=== PATIENT | female | born 1975 | race African-American/Black ===

== ENCOUNTER 2017-04-05 08:46 | Emergency (ER) | payer MEDICAID, OTHER ==
[~2017-04-05] VITALS: Ht 160 cm; Wt 74.0 kg
[2017-04-05 10:06] LABS: HEMATOCRIT. 26.4 % (36.0-48.0); HEMOGLOBIN. 7.9 g/dL (12.0-16.0); MEAN CORPUSCULAR HEMOGLOBIN 18.3 pg (28.0-32.0); MEAN CORPUSCULAR VOLUME 60.7 fL (81.0-99.0); MEAN PLATELET VOLUME 8.6 fl (7.4-10.4); PLATELET 662 x1000/uL (130-400); RED BLOOD CELL COUNT 4.34 mill/uL (4.2-5.4); RED CELL DISTRIBUTION WIDTH 22.3 % (11.6-14.6)
[2017-04-05 10:14] LABS: CHLORIDE 109 mEq/L (98-107)
[2017-04-05 10:32] LABS: PLATELET ESTIMATE INCREASED
[2017-04-05 11:45] VITALS: BP 135/82
== END 2017-04-05 11:50 | disposition home or self-care (01) ==
LOC: ER 09:01
DX: M54.2 Cervicalgia (principal); D50.9 Iron deficiency anemia, unspecified; E83.51 Hypocalcemia; D47.3 Essential (hemorrhagic) thrombocythemia; M32.9 Systemic lupus erythematosus, unspecified; G40.909 Epilepsy, unspecified, not intractable, without status epilepticus; Z86.011 Personal history of benign neoplasm of the brain; Z88.8 Allergy status to other drugs, medicaments and biological substances
CPT/HCPCS: 36415; 80048; 85025; 99284; Z7610

== ENCOUNTER 2019-06-07 20:13 | Emergency (ER) | payer OTHER ==
[~2019-06-07] VITALS: Ht 165.1 cm; Wt 73.0 kg
[2019-06-07 21:50] LABS: CHLORIDE 110 mEq/L (98-107); HEMATOCRIT. 25.2 % (36.0-48.0); HEMOGLOBIN. 7.8 g/dL (12.0-16.0); MEAN CORPUSCULAR HEMOGLOBIN 19.1 pg (28.0-32.0); MEAN CORPUSCULAR VOLUME 61.9 fL (81.0-99.0); MEAN PLATELET VOLUME 8.8 fl (7.4-10.4); PLATELET 475 x1000/uL (130-400); RED BLOOD CELL COUNT 4.07 mill/uL (4.2-5.4); RED CELL DISTRIBUTION WIDTH 22.9 % (11.6-14.6)
[2019-06-07 21:54] LABS: HCG SCREEN NEGATIVE
[2019-06-07 21:55] LABS: PARTIAL THROMBOPLASTIN TIME 25.6 sec (23.4-31.0); PROTHROMBIN TIME 10.4 sec (9.6-11.0)
[2019-06-07 22:21] LABS: PLATELET ESTIMATE INCREASED
[2019-06-08 01:17] VITALS: BP 131/86
== END 2019-06-08 01:30 | disposition short-term general hospital (02) ==
LOC: ER 20:13
DX: R55 Syncope and collapse (principal); D64.9 Anemia, unspecified; M32.9 Systemic lupus erythematosus, unspecified; G40.909 Epilepsy, unspecified, not intractable, without status epilepticus; Z86.011 Personal history of benign neoplasm of the brain; Z98.890 Other specified postprocedural states; Z88.8 Allergy status to other drugs, medicaments and biological substances
CPT/HCPCS: 36415; 71045; 80053; 81025; 83880; 84484; 84703; 85025; 86850; 86900; 93005; 99285

== ENCOUNTER 2020-02-26 09:56 | Emergency (ER) | payer OTHER ==
[~2020-02-26] VITALS: Ht 160 cm; Wt 76.0 kg
[2020-02-26] MEDS ORDERED: KETOROLAC 30MG/ML VIAL IM ONE (10:30)
[2020-02-26 12:54] VITALS: BP 130/86
== END 2020-02-26 13:05 | disposition home or self-care (01) ==
LOC: ER 09:56
DX: M25.511 Pain in right shoulder (principal); M77.8 Other enthesopathies, not elsewhere classified; M32.9 Systemic lupus erythematosus, unspecified; Z98.890 Other specified postprocedural states; Z88.8 Allergy status to other drugs, medicaments and biological substances
CPT/HCPCS: 73030; 81025; 96372; 99283; J1885

== ENCOUNTER 2020-07-27 10:40 | Emergency (ER) | payer MEDICAID, OTHER ==
[~2020-07-27] VITALS: Ht 160 cm; Wt 78.0 kg
[2020-07-27] MEDS: LORAZEPAM 1MG TABLET PO ONE (11:19)
[2020-07-27 13:10] VITALS: BP 130/78
== END 2020-07-27 13:11 | disposition home or self-care (01) ==
LOC: ER 10:47
DX: F41.0 Panic disorder [episodic paroxysmal anxiety] (principal); Z88.8 Allergy status to other drugs, medicaments and biological substances; Z86.59 Personal history of other mental and behavioral disorders; Z98.890 Other specified postprocedural states
CPT/HCPCS: 93005; 99283

== ENCOUNTER 2021-03-26 19:40 | Emergency (ER) | payer OTHER ==
[~2021-03-26] VITALS: Ht 160 cm; Wt 77.0 kg
[2021-03-26 20:27] LABS: HEMATOCRIT. 24.4 % (36.0-48.0); HEMOGLOBIN. 7.4 g/dL (12.0-16.0); MEAN CORPUSCULAR HEMOGLOBIN 17.9 pg (28.0-32.0); MEAN CORPUSCULAR VOLUME 58.8 fL (81.0-99.0); MEAN PLATELET VOLUME 8.8 fl (7.4-10.4); PLATELET 695 x1000/uL (130-400); RED BLOOD CELL COUNT 4.15 mill/uL (4.2-5.4); RED CELL DISTRIBUTION WIDTH 23.2 % (11.6-14.6)
[2021-03-26 20:29] LABS: CHLORIDE 106 mEq/L (98-107)
[2021-03-26 20:35] LABS: HCG SCREEN NEGATIVE
[2021-03-26 20:52] LABS: PLATELET ESTIMATE INCREASED
[2021-03-26] MEDS ORDERED: KETOROLAC 30MG/ML VIAL IM ONE (22:15)
[2021-03-26 22:23] VITALS: BP 111/76
== END 2021-03-26 22:58 | disposition home or self-care (01) ==
LOC: ER 19:40
DX: M25.511 Pain in right shoulder (principal); M25.561 Pain in right knee; Z88.8 Allergy status to other drugs, medicaments and biological substances; Z98.890 Other specified postprocedural states
CPT/HCPCS: 36415; 71045; 73030; 73560; 80053; 84484; 84703; 85025; 85651; 86140; 93005; 96372; 99284; J1885

== ENCOUNTER 2022-01-03 23:23 | Emergency (ER) | payer OTHER ==
[~2022-01-03] VITALS: Ht 160 cm; Wt 87.0 kg
[2022-01-04 00:17] VITALS: BP 150/91
== END 2022-01-04 07:50 | disposition left against medical advice (07) ==
LOC: ER 23:23
DX: Z53.21 Procedure and treatment not carried out due to patient leaving prior to being seen by health care provider (principal); M32.9 Systemic lupus erythematosus, unspecified; M19.90 Unspecified osteoarthritis, unspecified site; Z98.890 Other specified postprocedural states